=== PATIENT | female | born 2000 | race Caucasian/White ===

== ENCOUNTER 2018-03-04 22:02 | Emergency (ER) | payer BC ==
--- NOTE | 2018-03-04 22:48 | EDM.PDOC ---
ED HPI GENERAL MEDICAL PROBLEM - General Chief Complaint: Lower Extremity Injury/Pain Stated Complaint: SPRAINED RIGHT ANKLE Time Seen by Provider: 03/04/18 22:35 Source of Information: Reports: Patient History Limitations: Reports: No Limitations - History of Present Illness INITIAL COMMENTS - FREE TEXT/NARRATIVE: 18-year-old female turned her ankle 8 hours ago, the lateral aspect of the right ankle is swollen and very tender, she is having difficulty bearing weight and wanted it checked. No other injury. Onset: Today Duration: Hour(s): (8 hours ago) Location: Reports: Lower Extremity, Right Severity: Mild Associated Symptoms: Reports: No Other Symptoms left ankle Pain Score (Numeric/FACES): 4 - Related Data Allergies Allergy/AdvReac Type Severity Reaction Status Date / Time amoxicillin Allergy Hives Verified 03/04/18 22:31 cephalexin Allergy Hives Verified 03/04/18 22:31 erythromycin base Allergy Hives Verified 03/04/18 22:31 Home Meds: Home Meds Albuterol/Ipratropium [Combivent Respimat] 1 - 2 inh INH ASDIRECTED PRN [History] Past Medical History Respiratory History: Reports: Asthma Musculoskeletal History: Reports: Fracture Neurological History: Reports: Seizure, Other (See Below) Other Neuro History: febrile seizures as a child Psychiatric History: Reports: Anxiety, Depression - Past Surgical History Musculoskeletal Surgical History: Reports: Other (See Below) Other Musculoskeletal Surgeries/Procedures:: surgical repair of left arm Social & Family History - Tobacco Use Smoking Status *Q: Never Smoker - Caffeine Use Caffeine Use: Reports: Soda - Recreational Drug Use Recreational Drug Use: No Review of Systems - Review of Systems Review Of Systems: See Below Constitutional: Denies: Fever Respiratory: Denies: Shortness of Breath Cardiovascular: Denies: Chest Pain GI/Abdominal: Denies: Abdominal Pain, Nausea, Vomiting Skin: Denies: Bruising Neurological: Reports: No Symptoms ED EXAM, GENERAL - Physical Exam Exam: See Below Exam Limited By: No Limitations General Appearance: Alert, No Apparent Distress Head: Atraumatic Respiratory/Chest: No Respiratory Distress Extremities: Other (Exam is otherwise limited the lower extremities. There is no significant asymmetry of the ankles or knees, no tenderness to palpation around the right knee or the proximal fibula. She has some slight swelling over the lateral malleolus with significant tenderness to palpation) Course - Vital Signs Last Recorded V/S: Last Vital Signs Temp 99.7 F 03/04/18 22:40 Pulse 92 03/04/18 22:40 Resp 16 03/04/18 22:40 BP 123/81 03/04/18 22:40 Pulse Ox 99 03/04/18 22:40 - Orders/Labs/Meds Orders: Active Orders 24 hr Category Date Time Status Ankle Min 3V Rt [CR] Stat Exams 03/04/18 22:43 Taken DME for Discharge [COMM] Stat Oth 03/04/18 23:05 Ordered - Re-Assessments/Exams Free Text/Narrative Re-Assessment/Exam: 03/04/18 22:48 Right ankle x-ray was obtained. 03/04/18 23:05 X-ray was negative. A three-inch Darian wrap was applied to the foot and the patient was fitted with crutches. She should increase activity and start bearing weight as soon as possible. She can recheck next week if not improving satisfactorily. Departure - Departure Time of Disposition: 23:30 Disposition: Home, Self-Care 01 Condition: Good Clinical Impression: Ankle sprain Qualifiers: Encounter type: initial encounter Involved ligament of ankle: anterior talofibular ligament Laterality: right Qualified Code(s): S93.491A - Sprain of other ligament of right ankle, initial encounter - Discharge Information Instructions: Ankle Sprain, [id number] Referrals: PCP,None [Primary Care Provider] - Forms: ED Department Discharge Care Plan Goals: Use crutches the next several days until pain improves. Darian wrap to help with swelling, elevation will help as well. Ibuprofen as needed for pain and increase activity as tolerated. Consider rechecking in 4-6 days if not improving satisfactorily. - My Orders Last 24 Hours: My Active Orders 03/04/18 22:43 Ankle Min 3V Rt [CR] Stat 03/04/18 23:05 DME for Discharge [COMM] Stat - Assessment/Plan Last 24 Hours: My Active Orders 03/04/18 22:43 Ankle Min 3V Rt [CR] Stat 03/04/18 23:05 DME for Discharge [COMM] Stat
--- NOTE | 2018-03-06 09:07 | CR ---
Ankle Min 3V Rt CLINICAL HISTORY: Pain, injury FINDINGS: The soft tissues are swollen. No acute fracture or dislocation is noted. Ankle mortise is i ntact. Articular surfaces are smooth. Impression: Soft tissue swelling No fracture
== END 2018-03-04 23:30 | disposition home or self-care (01) ==
LOC: JP.ED 22:02
DX: S93.491A Sprain of other ligament of right ankle, initial encounter (principal); J45.909 Unspecified asthma, uncomplicated; Z88.1 Allergy status to other antibiotic agents; Z88.8 Allergy status to other drugs, medicaments and biological substances; Z79.899 Other long term (current) drug therapy; X50.0XXA Overexertion from strenuous movement or load, initial encounter
CPT/HCPCS: 73610-26-RT; 73610-RT; 99284